=== PATIENT | female | born 1975 | race Caucasian/White ===

== ENCOUNTER 2016-09-24 23:07 | Emergency (ER) | payer BC ==
[~2016-09-24] VITALS: Ht 162.6 cm; Wt 70.0 kg
[2016-09-24 23:31] LABS: HEMATOCRIT 33.9 % (36.0-46.0); MCH 30.7 PG (29.0-34.0); MCV 92.9 FL (83-99); MEAN PLAT.VOLUME 11.4 uM^3 (9.5-12.4); PLATELET COUNT 166 K/uL (156-360); RBC DIS.WIDTH-CV 12.6 % (11.8-14.6); RBC DIS.WIDTH-SD 43.2 % (39-53); RED BLOOD COUNT 3.65 M/uL (3.80-5.20); WHITE BLOOD COUNT 7.7 K/uL (4.1-10.2)
[2016-09-24 23:41] LABS: CHLORIDE 105 mEq/L (99-109); POTASSIUM 3.6 mEq/L (3.7-5.4); SODIUM 137 mEq/L (136-147)
[2016-09-24 23:42] LABS: D-DIMER ELISA 0.33 mg/L FEU (< 0.57); MAGNESIUM 1.8 mg/dL (1.3-2.7)
[2016-09-24 23:44] LABS: GLUCOSE 123 mg/dL (70-99)
[2016-09-24 23:45] LABS: ANION GAP 8 MEQ/L (2-14)
[2016-09-24 23:46] LABS: TOTAL BILIRUBIN 0.4 mg/dL (0.0-1.0)
[2016-09-24 23:48] LABS: ALKALINE PHOSPHATASE 55 IU/L (3-129); GFR ESTIMATE (CALCULATED) > 59 mL/min/
[2016-09-24 23:49] LABS: UREA NITROGEN (BUN) 13 mg/dL (9-23)
[2016-09-24 23:51] LABS: LIPASE 25 U/L (1.0-51.0)
[2016-09-24 23:59] LABS: TROP-I INTERPRETATION NEGATIVE; TROPONIN-I < 0.01 ng/mL (0.0-0.30)
[2016-09-25 00:01] LABS: ADD MIUA? NO; BILIRUBIN NEGATIVE; BLOOD NEGATIVE; COLOR STRAW ((YELLOW)); GLUCOSE (STRIP) NEGATIVE; KETONES NEGATIVE; LEUKOCYTES NEGATIVE; NITRITE NEGATIVE; PROTEIN (STRIP) NEGATIVE; SPECIFIC GRAVITY 1.004 (1.000-1.030); UCUL ADDED? NO; UROBILINOGEN 0.2 MG/DL (0.2-1.0)
[2016-09-25 00:15] LABS: INTERNAL CONTROL VALID? YES
[2016-09-25 01:08] VITALS: BP 119/71
== END 2016-09-25 01:10 | disposition home or self-care (01) ==
LOC: EME → EDBD 23:07 → EME 09-25 01:10
PROVIDERS: Emergency Medicine
DX: R00.2 Palpitations (principal); E86.0 Dehydration; E83.51 Hypocalcemia
CPT/HCPCS: 71020; 80053; 81003; 83690; 83735; 84100; 84443; 84484; 84703; 85027; 85379; 93005; 99281; 99285; J7030